=== PATIENT | male | born 1955 | race Caucasian/White ===

== ENCOUNTER → 2016-09-23 | Outpatient (CLI) | payer BC | LOC: GMAB 14:44 | PROVIDERS: ATTEND Family Medicine | DX: Z00.00 Encounter for general adult medical examination without abnormal findings (principal) ==

== ENCOUNTER → 2017-10-04 | Outpatient (CLI) | payer BC | LOC: GMAE 10:46 | PROVIDERS: ATTEND Family Medicine | DX: Z00.00 Encounter for general adult medical examination without abnormal findings (principal) ==

== ENCOUNTER → 2018-09-21 | Outpatient (CLI) | payer BC | LOC: GMAE 10:37 | PROVIDERS: ATTEND Family Medicine | DX: Z00.00 Encounter for general adult medical examination without abnormal findings (principal) ==

== ENCOUNTER → 2019-10-09 | Outpatient (CLI) | payer BC ==
--- NOTE | 2019-10-10 08:12 | MRI ---
Study: MRI of the Right Knee. Indication: PAIN Technique: Multiplanar, multi sequence MRI of the right knee was obtained without intravenous contrast. Comparison: None. Findings: ACL, PCL, MCL, and lateral collateral ligament complex intact. Oblique undersurface tear posterior horn and body medial meniscus. Patchy grade 3-4 chondrosis central to medial margins of the medial compartment with moderate subchondral marrow change medial tibial plateau. Tiny horizontal cleavage tearing at the posterior horn and body lateral meniscus. Grade 3 chondrosis of the majority of the lateral compartment with mild areas of grade 4 chondrosis central aspect lateral femoral condyle and lateral margin lateral tibial plateau. Tendinosis quadriceps tendon insertion with mild interstitial fissuring. Patellar tendon intact. Patella normally located. Patchy grade 3 and mild grade 4 chondrosis junction lateral patellar facet and apex with minimal subchondral marrow change. Tiny effusion. No acute fracture. Impression: Oblique undersurface tear posterior horn and body medial meniscus with horizontal cleavage tear body and posterior horn lateral meniscus. Tricompartmental areas of grade 3 and 4 chondrosis, most pronounced at the medial compartment. Tiny effusion. Electronically signed by: Lincoln John MD 10/10/2019 8:10 AM CDT
== END ==
LOC: MRI 13:01
PROVIDERS: ATTEND Family Medicine
DX: S83.241A Other tear of medial meniscus, current injury, right knee, initial encounter (principal); S83.281A Other tear of lateral meniscus, current injury, right knee, initial encounter; M94.261 Chondromalacia, right knee; M25.461 Effusion, right knee

== ENCOUNTER → 2020-01-08 | Outpatient (CLI) | payer BC | LOC: LAB.NP 11:09 | PROVIDERS: ATTEND Family Medicine | DX: Z00.00 Encounter for general adult medical examination without abnormal findings (principal) ==